=== PATIENT | female | born 1975 | race Caucasian/White ===

== ENCOUNTER 2022-11-01 10:13 | Emergency (ER) | payer OTHER, SELFPAY ==
[2022-11-01 10:15] VITALS: BP 122/85; PULSE 88; RESP 20; TEMP 35.9; O2SAT 100
[2022-11-01 11:00] VITALS: PULSE 92
[2022-11-01] MEDS: ONDANSETRON INJ 4 MG/2 ML VIAL IV PUSH (11:31)
[2022-11-01] MEDS: SODIUM CHLORIDE 0.9% IV 1,000 ML 999 ML IV CONT (11:31)
[2022-11-01 11:32] VITALS: BP 102/57; PULSE 79; RESP 18; TEMP 36.8; O2SAT 100
[2022-11-01] MEDS: Please add drug allergy info to patient profile. 1 EACH XX (11:32)
--- NOTE | 2022-11-01 11:34 | PC.NURSE ---
Pt states she is starting to feel better. RN noted less anxiety. IV fluids started
[2022-11-01 11:50] LABS: Appearance Urine Clear (Clear); Bacteria Urine None Seen /hpf; Bilirubin Urine Negative (Negative); Blood Urine Negative (Negative); Color Urine Dark Yellow (Yellow); Glucose Urine UA Negative (Negative); Ketones Urine Negative (Negative); Leukocyte Esterase Ur Negative LEU/UL (Negative); Nitrate Urine Negative (Negative); Non Pathogenic Casts 0-2; Protein Urine Trace mg/dL (Negative); RBC Urine 0-2 /hpf (0-2); Squamous Epithelial Cell Urine Few /hpf (Few); WBC Urine 0-5 /hpf; pH Urine 5.5 (5.0-9.0)
[2022-11-01 11:50] LABS: Basophils Percent Auto 0.4 % (0.2-1.2); Eosinophils Absolute Auto 0.2 K/mm3 (0-0.3); Eosinophils Percent Auto 2.5 % (0-4.4); Hematocrit 36.6 % (37.0-47.0); Hemoglobin 11.2 g/dL (12.0-15.0); Immature Granulocyte Absolute 0.02 K/mm3 (0.00-0.031); Immature Granulocyte Percent A 0.3 % (0-0.5); Lymphocytes Absolute Auto 2.11 K/mm3 (0.9-3.2); Lymphocytes Percent Auto 30.9 % (18.3-44.2); Mean Corpuscular HGB Conc 30.6 g/dl (32-36); Mean Corpuscular Hemoglobin 29.8 pg (26-34); Mean Corpuscular Volume 97.3 fl (80-100); Mean Platelet Volume 9.3 fl (7.4-10.4); Monocytes Absolute Auto 0.3 K/mm3 (0.1-0.6); Neutrophils Absolute Auto 4.2 K/mm3 (1.3-6.7); Neutrophils Percent Auto 60.9 % (45.5-73.1); Platelet Count Result 351 k/mm3 (150-375); Red Blood Count 3.76 M/mm3 (4.2-5.4); White Blood Count 6.8 K/mm3 (4.5-10.0)
[2022-11-01 12:01] LABS: Alanine Aminotransferase 14 U/L (6-35); Albumin Level 3.8 g/dL (3.5-5.1); Alkaline Phosphatase 76 U/L (38-126); Anion Gap 5 mmol/L (8-16); Aspartate Amino Transferase 24 U/L (14-36); Bilirubin,Total 0.3 mg/dL (0.2-1.3); Blood Urea Nitrogen 9 mg/dL (7-17); Calcium 8.7 mg/dL (8.4-10.2); Carbon Dioxide 20 mmol/L (22-30); Chloride 108 mmol/L (98-107); Estimated CRCL calculation 70 ml/min; Estimated Glomerular Filt Rate > 60; Glucose 104 mg/dL (65-110); Lipase 169 U/L (23-300); Potassium 4.4 mmol/L (3.4-5.0); Sodium 133 mmol/L (137-145)
[2022-11-01 12:04] LABS: Add Urine Microscopic? YES; Specific Grav Ur 1.036 (1.001-1.035)
[2022-11-01 13:00] VITALS: BP 100/50; PULSE 86; RESP 20; TEMP 36.6; O2SAT 100
--- NOTE | 2022-11-01 13:04 | ED.GENADULT ---
HPI - General Adult General Chief complaint: Unspecified Stated complaint: withdrawal from clonazepam Time Seen by Provider: 11/01/22 10:31 History of Present Illness HPI narrative: Patient is a 47-year-old female who presents ER with nausea vomiting diarrhea. Began this morning. She is concerned it is related to benzodiazepine withdrawal. She took her last pill 2 days ago. She has been doing a 6-month taper that has been supervised by her PCP. No fevers but she has feelings of being flushed and chilled. No known sick contacts. No urinary symptoms. No aggravating or alleviating factors. Patient feels like she may have had a panic attack and come to the ER too soon as she is already starting to feel better. Related Data Allergies Allergy/AdvReac Type Severity Reaction Status Date / Time No Known Allergies Allergy Verified 11/01/22 11:26 Review of Systems Review of Systems: All systems reviewed & are unremarkable except as noted in HPI and below Constitutional: Constitutional: Reports chills, Reports fatigue and Denies fever(s) ENT: Denies nasal congestion and Denies sore throat Cardiovascular: Cardiovascular: Denies chest pain, Denies radiating jaw, neck or arm pain and Denies palpitations Gastrointestinal: Gastrointestinal: Denies abdominal pain, Reports diarrhea, Reports nausea and Reports vomiting Musculoskeletal: Musculoskeletal: Reports no additional musculoskeletal complaints Integumentary/Breasts: Skin/Breast: Reports system reviewed and no additional complaints, except as docu Neurologic: Reports system reviewed and no additional complaints, except as documented Exam Narrative: GENERAL: Well-appearing, well-nourished, and in no acute distress. HEAD: Normocephalic, atraumatic. Neck: Supple. CHEST: Clear to auscultation. No respiratory distress. HEART: Regular rate and rhythm. Normal peripheral pulses. ABDOMEN: Soft, nontender, nondistended. EXTREMITIES: Normal range of motion. No edema. SKIN: Warm, dry, no rash. NEURO: Alert and oriented x3. PSYCH: Normal mood and affect. Course Vital Signs Vital signs: Vital Signs Temperature 96.7 F L 11/01/22 10:15 Pulse Rate 88 11/01/22 10:15 Respiratory Rate 20 11/01/22 10:15 Blood Pressure 122/85 11/01/22 10:15 Pulse Oximetry 100 11/01/22 10:15 Oxygen Delivery Room Air 11/01/22 10:15 Temperature 98.3 F 11/01/22 11:32 Pulse Rate 79 11/01/22 11:32 Respiratory Rate 18 11/01/22 11:32 Blood Pressure 102/57 L 11/01/22 11:32 Pulse Oximetry 100 11/01/22 11:32 Oxygen Delivery Room Air 11/01/22 10:15 Medical Decision Making MDM Narrative Medical decision making narrative: Medical decision making narrative: -Presentation: 47-year-old female presenting to the ER with nausea vomiting and anxiety. -DDX includes but is not limited to: Benzodiazepine withdrawal, gastroenteritis, anxiety attack -Co-morbidities complicating care: Chronic benzodiazepine use. -Social determinants of health: None -External Chart Review: None -Hx from independent Sources: Patient -Independent interpretation of studies: Mild anemia 11.2 which is chronic. CBC otherwise unremarkable. CMP with mildly lowered sodium of 133. Normal renal function and liver function test. Urinalysis without infection. -Discussion of Management/Consultants: none -Dx tests considered but not ordered: none -Procedures: none -Interventions: Zofran and IV fluid. -Shared decision making / Disposition: Patient feeling improved. Discussed lab findings and treatment plan. Recommend contacting her PCP about her benzo withdrawal/discontinuation. Discharge home. -RX: Zofran Vital Signs Vital Signs: Vital Signs Temperature 96.7 F L 11/01/22 10:15 Pulse Rate 88 11/01/22 10:15 Respiratory Rate 20 11/01/22 10:15 Blood Pressure 122/85 11/01/22 10:15 Pulse Oximetry 100 11/01/22 10:15 Oxygen Delivery Room Air 11/01/22 10:15
[2022-11-01 13:36] VITALS: BP 100/55; PULSE 72; RESP 20; TEMP 36.7; O2SAT 99
== END 2022-11-01 13:44 | disposition home or self-care (01) ==
PROVIDERS: Emergency Provider Emergency Medicine; PCP Internal Medicine
DX: F13.239 Sedative, hypnotic or anxiolytic dependence with withdrawal, unspecified (principal); T42.4X5A Adverse effect of benzodiazepines, initial encounter
CPT/HCPCS: 36415; 80053; 81001; 83690; 85025; 96361; 96374; 99284; J2405; J7030